=== PATIENT | female | born 1985 | race Caucasian/White ===

== ENCOUNTER 2023-01-01 05:35 | Emergency (ER) | payer MEDICAID, SELFPAY ==
[2023-01-01 05:38] VITALS: BP 137/44; PULSE 73; RESP 25; TEMP 37.1; O2SAT 100; BMI 24.5
--- NOTE | 2023-01-01 05:58 | CT_ITS ---
EXAM: CT HEAD WITHOUT INTRAVENOUS CONTRAST CLINICAL INDICATION: dizziness TECHNIQUE: Multiple axial images were obtained of the head without intravenous contrast. This CT exam was performed using one or more of the following dose reduction techniques: automated exposure control, adjustment of the mA and/or kV according to patient size, and/or use of iterative reconstruction technique. This report was created using [employer] report generation technology. COMPARISON: None. FINDINGS: BRAIN AND EXTRA-AXIAL SPACES: Normal. No intra- or extra-axial hemorrhage. No acute infarct. No intracranial mass or mass effect. There is preservation of the lake/white matter interface. Posterior fossa structures are unremarkable. Ventricles are appropriate for age. No hydrocephalus. Basal cisterns are patent. BONES/JOINTS: No suspicious lytic or blastic abnormality. SINUSES: No acute sinusitis. MASTOID AIR CELLS: Normal. Clear. ORBITS: Visualized globes, extraocular muscles, optic nerves and retrobulbar fat appear unremarkable. CT/Brain/Head without Contrast IMPRESSION: Normal CT brain without intravenous contrast. Electronically Signed: Kentrell Mcelroy MD at 7:33 EDT ,
--- NOTE | 2023-01-01 05:58 | EKG12_ITS ---
Test Reason : PALPS Blood Pressure : / mmHG Vent. Rate : 064 BPM Atrial Rate : 064 BPM P-R Int : 154 ms QRS Dur : 092 ms QT Int : 386 ms P-R-T Axes : 041 059 053 degrees QTc Int : 398 ms Normal sinus rhythm Normal ECG Confirmed by WALDEMAR MILLS, BYRON ([id number]), film or videotape editor KRISTI FLORES ([id number]) on 01/03/2023 9:12:15 AM Referred By: CISCO Confirmed By:BYRON MEDEIROS MD
[2023-01-01 06:03] VITALS: BP 117/66; BP 119/63; BP 129/86; PULSE 65; PULSE 68; PULSE 80
[2023-01-01] MEDS: diazePAM 5 MG Tablet 2.5 MG PO ×2 (06:07→07:34)
[2023-01-01 06:09] LABS: Absolute Lymphocyte Count 1.37 X10^3/uL (0.83-4.51); Absolute Neutrophil Count 3.6 X10^3/uL (2.0-7.7); Basophil# 0.04 X10^3/uL; Basophil% 0.7 % (0-1); Eosinophil# 0.16 X10^3/uL; Eosinophils% 2.9 % (0-5); Hematocrit 40.6 % (37-47); Hemoglobin 13.2 g/dL (12.0-15.0); Lymphocyte # 1.37 X10^3/ul (0.83-4.51); Mean Corp Hgb Conc 32.5 g/dL (32-36); Mean Corpuscular Hgb 30.7 pg (27.0-32.0); Mean Corpuscular Volume 94.4 fL (81-99); Mean Platelet Vol. 10.8 fl (6.2-12.0); Monocyte# 0.31 X10^3/uL; Monocyte% 5.6 % (0-10); NRBC Flagged by Analyzer 0 % (0-5); Neutrophil # 3.59 X10^3/uL (2.7-7.7); Neutrophil % 65.4 % (47-70); Platelet Count 240 K/mm3 (150-450); RBC Distribution Width SD 44.8 fl (35.1-43.9); White Blood Count 5.5 K/mm3 (4.4-11.0)
--- NOTE | 2023-01-01 06:30 | EX.ED.DYSGE1 ---
HPI History of Present Illness Chief Complaint: Palpitations Narrative Narrative: Patient is a 37-year-old female with past medical history of Verona's thyroiditis. She states she got up this morning to use the restroom and after standing up felt combination of both lightheadedness and dizziness. She states that if she sat down and lies still she had improvement of symptoms but as soon as she would change positions they would return. She reports feeling palpitations associated with this. She denies any history of cardiac dysrhythmia or family history of a abnormal heart rhythm. She states she also has developed ringing in her ears which is not normal for her. She states she has a recent diagnosis of Verona's thyroiditis but states she is not on any medication for it. She reports that as symptoms were not resolving spontaneously at home she was concerned this could be cardiac in nature and therefore comes in for evaluation [facility] Medical History Anemia Verona's thyroiditis Home Medications diazepam 5 mg tablet (Valium) 5 mg PO TID PRN dizziness or vertigo 5 days #15 tabs 01/01/23 [Rx Last Taken Unknown] Allergy/AdvReac Type Severity Reaction Status Date / Time Penicillins [PCN] AdvReac Rash Verified 01/01/23 05:37 Family History no significant family his Surgical History no surgical history Social History Smoking Status: Never smoker ROS ROS ED Constitutional Constitutional ED: Denies chills or fever(s) Eyes Eyes: Denies change in vision ENT ENT ED: Reports other Details: Positive tinnitus ; Denies sore throat Cardiovascular Cardiovascular: Reports palpitations; Denies chest pain Respiratory/Chest Respiratory/Chest: Denies cough or dyspnea Gastrointestinal Gastrointestinal: Reports nausea; Denies abdominal pain, diarrhea or vomiting Genitourinary Genitourinary ED: Denies dysuria Musculoskeletal Musculoskeletal: Denies myalgias Integumentary Denies rash Neurologic Neurologic: Reports headache(s); Denies paresthesias or weakness Hematologic/Lymphatic Hematologic/Lymphatic: Denies easy bleeding or easy bruising EXAM Physical Exam Const Vital Signs: 01/01/23 05:38 01/01/23 05:41 01/01/23 06:03 Temperature 98.7 F Temperature Source Temporal Pulse Rate 73 Pulse Rate [Lying] 65 Pulse Rate [Sitting (for 1 minute prior to obtaining)] 68 Pulse Rate [Standing (for 1 minute prior to obtaining)] 80 Respiratory Rate 25 H Respiratory Effort Normal Respiratory Pattern Normal Blood Pressure 137/44 H Blood Pressure [Lying] 117/66 Blood Pressure [Sitting (for 1 minute prior to obtaining)] 119/63 Blood Pressure [Standing (for 1 minute prior to obtaining)] 129/86 H Blood Pressure Mean 75 Blood Pressure Mean [Lying] 83 Blood Pressure Mean [Sitting (for 1 minute prior to obtaining)] 81 Blood Pressure Mean [Standing (for 1 minute prior to obtaining)] 100 Pulse Ox 100 Oxygen Delivery Method Room Air Positive well nourished and well developed General Appearance ED: well developed HEENT Reports TM's clear and moist mucous membranes Tympanic Membrane ED: Yes TM's clear Eyes PERRL and EOMs intact bilaterally Neck supple Neck Narrative: No nuchal rigidity or meningeal signs noted Resp normal respiratory effort and clear to auscultation bilaterally Cardio regular rate and regular rhythm Rate: other Other Details: Radial pulses are plus 2 out of 4 bilaterally are equal and symmetric GI normal to inspection, nondistended, normoactive bowel sounds, non-tender, non-distended and no masses GI Narrative: No voluntary guarding or rigidity no pulsatile mass Auscultation: normoactive bowel sounds Palpation: soft Extremity normal to inspection Extremity Narrative: No asymmetric edema no pitting edema negative Homans' sign bilaterally Neuro oriented x3, CN's II-XII intact bilaterally and no sensory deficits noted Neuro Narrative: Cranial nerves II through XII are grossly intact there are no focal neurologic deficit. No pronator drift no dysmetria no truncal ataxia. There is mild horizontal nystagmus noted Sensorium / Orientation: alert Psych mental status grossly normal Skin no rashes or lesions noted MDM MDM MDM Narrative Medical decision making narrative: Patient presented to the ER with stable vitals and appears to be in normal sinus rhythm upon evaluation. Along with the palpitations she reported an off balance/dizzy sensation. This seemed to be more consistent with peripheral vertigo as she did have horizontal nystagmus on exam. Orthostatic vital signs were obtained and were negative. Lab work reveals no clinically significant finding other than her elevated TSH which is consistent with a recent diagnosis of Verona's thyroiditis. She does not have any type of myxedema coma however. At this time she does not appear to have a cardiac dysrhythmia such as A-fib a flutter or SVT there is no acute neurologic event to suggest acute stroke as the cause of her symptoms as her NIH stroke scale score is 0 and there is no severe electrolyte derangement or signs of acute kidney injury and no signs of dehydration as her orthostatic vitals are negative. She was given 2.5 mg of oral Valium but despite this she still felt off balance and dizzy. Secondary to the persistent dizziness symptoms patient will undergo CTA of the head and neck to check for vertebrobasilar insufficiency. No results of CTA are still pending and therefore the case will be signed out to the daytime physician Dr. Aguero. Disposition will be based on patient's improvement with treatment as well as results of the CTA scan. I do feel that if CTA is normal and patient is able to ambulate then she should be safe for discharge History & Record Review Discussion w/independent historian: Patient and Significant other Lab Data Attestation: I reviewed the patient's lab results. Labs: Laboratory Results - last 24 hr 01/01/23 01/01/23 05:40 05:40 WBC 5.5 RBC 4.30 Hgb 13.2 Hct 40.6 MCV 94.4 MCH 30.7 MCHC 32.5 RDW Std Deviation 44.8 H RDW Coeff of Kimberly 13.0 Plt Count 240 MPV 10.8 Immature Gran % (Auto) 0.400 Neut % (Auto) 65.4 Lymph % (Auto) 25.0 [place] % (Auto) 5.6 Eos % (Auto) 2.9 Baso % (Auto) 0.7 Absolute Neuts (auto) 3.6 Absolute Lymphs (auto) 1.37 Nucleated RBC % 0 Sodium 136 Potassium 3.3 L Chloride 106 Carbon Dioxide 26.0 Anion Gap 4 L BUN 7 Creatinine 0.86 Estim Creat Clear Calc 79.03 Est GFR (MDRD) Af Amer 94 Est GFR (MDRD) Non-Af 78 BUN/Creatinine Ratio 8.1 L Glucose 139 H Calcium 8.9 Magnesium 2.2 TSH 9.15 H Discharge Plan Triage Chief Complaint: Palpitations ED Provider: Wili Martinez Dx/Rx/DC Orders Clinical Impression: Dizziness, Palpitations, Verona's thyroiditis Instructions: ED Dizziness, Uncertain Cause, ED Palpitations Prescriptions: New diazepam [Valium] 5 mg tablet 5 mg PO TID PRN (Reason: dizziness or vertigo) 5 Days Qty: 15 0RF Primary Care Provider: Nina Del Rosario Referrals: Nina Del Rosario DO [Primary Care Provider] - Activity Restrictions/Additional Instructions: Please take the prescribed medication as directed to help control any further symptoms and follow-up with your family doctor for repeat evaluation. If you have any further concerns please return to the emergency department for repeat evaluation
[2023-01-01 06:33] LABS: Anion Gap 4 (5-15); BUN 7 mg/dL (7-18); BUN/Creat Ratio 8.1 RATIO (10-20); Calcium,Total 8.9 mg/dL (8.5-10.1); Chloride 106 mmol/L (98-107); Creatinine, Serum 0.86 mg/dL (0.55-1.02); EST Glomerular Filtration Rate 78 mL/min (>60); Est Glom Filt Rate - Afr Amer 94 mL/min (>60); Estimated Creatinine Clearance 79.03 ml/min; Glucose 139 mg/dL (74-106); Magnesium 2.2 mg/dL (1.6-2.6); Potassium 3.3 mmol/L (3.5-5.1); Sodium Level 136 mmol/L (136-145); Thyroid Stim Hormone (TSH) 9.15 uIU/mL (0.358-3.74)
[2023-01-01] MEDS: 0.9% Normal Saline 1,000 ML 999 ML IV (06:51)
--- NOTE | 2023-01-01 07:16 | CT_ITS ---
INDICATION: Intractable dizziness EXAMINATION: CTA HEAD - CTA Head and Neck W/ Contrast Injection (and W/O Contrast Images if performed) TECHNIQUE: [place]/head CT angiogram protocol was performed following IV contrast. Routine carotid CT angiogram protocol was performed without and with IV contrast. NASCET criteria using the distal ICAs for comparison were used for evaluation of stenoses. 3D reconstructions were reviewed of the CT angiogram head and neck. A radiation dose optimization technique was used for this scan. IV Contrast dosage and agent: 100 cc [id number] COMPARISON: None. FINDINGS: --Anterior cerebral circulation: ACAs: No significant stenosis at the visualized segments. ACOM: Not present. MCAs: No significant stenosis at the visualized segments. --Posterior cerebral circulation: PCOMs: Right P-comm is present giving rise to the right posterior cerebral artery. sports umpire: No significant stenosis at the visualized segments. BASILAR ARTERY: No significant stenosis. --Carotid and vertebral circulation: AORTIC ARCH AND BRANCHES: Normal anatomy, patent. RIGHT CCA: No occlusion, significant stenosis or dissection. RIGHT ICA: No occlusion, significant stenosis or dissection. LEFT CCA: No occlusion, significant stenosis or dissection. LEFT ICA: No occlusion, significant stenosis or dissection. RIGHT VERTEBRAL ARTERY: No occlusion, significant stenosis or dissection. LEFT VERTEBRAL ARTERY: No occlusion, significant stenosis or dissection. NECK SOFT TISSUES: Unremarkable. LUNG APICES: Clear. BONES: Unremarkable. CT/CTA Head AND Neck W/ Contrast IMPRESSION: Normal CTA Head and CTA Neck Electronically Signed: Kentrell Mcelroy MD at 8:42 EDT ,
[2023-01-01 09:18] VITALS: BP 133/66; PULSE 65; RESP 14; O2SAT 100
== END 2023-01-01 09:20 | disposition home or self-care (01) ==
PROVIDERS: Emergency Provider Emergency Medicine; PCP Internal Medicine; Visit Provider Emergency Medicine
DX: R42 Dizziness and giddiness (principal); R00.2 Palpitations; E06.3 Autoimmune thyroiditis
CPT/HCPCS: 70450; 70496; 70498; 80048; 83735; 84443; 85025; 93005; 99285; J7030; Q9967; A4216

== ENCOUNTER 2023-04-11 05:08 | Emergency (ER) | payer MEDICAID, SELFPAY ==
[2023-04-11 05:09] VITALS: BP 133/80; PULSE 74; RESP 19; TEMP 36.6; O2SAT 100; BMI 23.9
--- NOTE | 2023-04-11 05:26 | EKG12_ITS ---
Test Reason : DYSRHYTHMIA Blood Pressure : / mmHG Vent. Rate : 059 BPM Atrial Rate : 059 BPM P-R Int : 170 ms QRS Dur : 090 ms QT Int : 400 ms P-R-T Axes : 048 076 057 degrees QTc Int : 396 ms Sinus bradycardia Otherwise normal ECG Confirmed by WALDEMAR MILLS, BYRON ([id number]), supervising editor news reel KRISTI FLORES ([id number]) on 04/12/2023 9:55:06 AM Referred By: KMEI Confirmed By:BYRON MEDEIROS MD
--- NOTE | 2023-04-11 05:26 | RAD_ITS ---
INDICATION: chest discomfort, dyspnea EXAMINATION/TECHNIQUE: X-RAY - XR Chest 2 Views COMPARISON: FINDINGS: LINES/DEVICES: None. LUNGS: No consolidation, edema or effusion. No pneumothorax. MEDIASTINUM AND CARDIOVASCULAR STRUCTURES: Cardiac silhouette not enlarged. Central airways and mediastinal contour are unremarkable. BONES AND SOFT TISSUES: Unremarkable. RAD/Chest PA and Lateral IMPRESSION: No radiographic evidence of acute cardiopulmonary disease. Electronically Signed: Philip Pearson MD at 6:10 EDT ,
--- NOTE | 2023-04-11 05:28 | EX.ED.DYSGE1 ---
HPI History of Present Illness Chief Complaint: General Illness Informant: patient Narrative Narrative: For the past 1-2 months, patient has been having frequent nausea throughout the day, feeling poorly in general, having a gurgling sensation in her throat/neck when she swallows liquids but more so saliva, and waking up in the middle of the night in a panic, with increased discomfort in her chest and making herself feel short of breath almost like PND. She denies feeling short of breath just simply by lying flat. She occasionally has some upper abdominal discomfort, but she is not been having a lot of abdominal pain. She recently was diagnosed with Verona thyroiditis and started on levothyroxine, and just saw endocrine. She does have a goiter. Endocrinology suggested she may have gluten intolerance and are running tests but nothing is back yet, and she has not been on a strict gluten-free diet yet. She definitely has noticed that the symptoms are worse with swallowing, and worse every night to the point where she wakes up and she is sleeping poorly. She has taken Prilosec but only started yesterday. Also in this period of time, she has been on 3 courses of antibiotics for urinary tract infections. The symptoms above started a little bit before the first urinary tract infection, the neck and chest symptoms have not been any better while on antibiotics but not necessarily worse. The antibiotics have made the urinary symptoms better transiently. 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 Home Medications Lacto no.51-B.animalis 30 billion cell-inulin 50 mg capsule,delay rel (Fortify Women Probiotic) cap PO 01/30/23 [History Last Taken Unknown] iron,carbonyl 65 mg-vitamin C 125 mg tablet,delayed release (Vitron-C) 1 tab PO DAILY 01/30/23 [History Last Taken Unknown] multivitamin 1 tab PO DAILY 01/30/23 [History Last Taken Unknown] levothyroxine 75 mcg tablet 75 mcg PO DAILY #90 tabs 04/09/23 [Rx Last Taken Unknown] sulfamethoxazole 400 mg-trimethoprim 80 mg tablet (Bactrim) 1 tab PO BID 04/09/23 [History Last Taken Unknown] ondansetron 4 mg disintegrating tablet 8 mg (2 x 4 mg) PO Q8H PRN PRN Nausea #20 tabs 04/11/23 [Rx Last Taken Unknown] pantoprazole 40 mg tablet,delayed release 40 mg PO DAILY #30 tabs 04/11/23 [Rx Last Taken Unknown] Allergy/AdvReac Type Severity Reaction Status Date / Time Penicillins [PCN] AdvReac Rash Verified 04/09/23 08:15 Family History Grandmother Anemia Diabetes Arthritis Mother Anxiety Asthma Cancer Father Asthma Autoimmune disorder COPD (chronic obstructive pulmonary disease) Brother Asthma Suicide attempt Mental disorder Grandfather Myocardial infarction Cancer Surgical History delivery delivered Social History Smoking Status: Never smoker alcohol intake: never substance use type: does not use what type of physical activity do you participate in: walking ROS ROS ED Constitutional Constitutional ED: Reports malaise; Denies chills or fever(s) Eyes Eyes: Denies change in vision or diplopia ENT ENT ED: Denies rhinorrhea or sore throat Cardiovascular Cardiovascular: Denies chest pain or palpitations Respiratory/Chest Respiratory/Chest: Denies cough or dyspnea Gastrointestinal Gastrointestinal: Reports nausea; Denies abdominal pain, diarrhea or vomiting Genitourinary Genitourinary ED: Denies dysuria or hematuria Musculoskeletal Musculoskeletal: Denies back pain or neck pain Integumentary Denies abscess or rash Neurologic Neurologic: Denies headache(s), paresthesias or weakness Psychiatric Psychiatric: Denies anxiety or suicidal thoughts EXAM Physical Exam Const Vital Signs: 04/11/23 05:09 Temperature 98 F Temperature Source Temporal Pulse Rate 74 Respiratory Rate 19 H Blood Pressure 133/80 H Blood Pressure Mean 97 Pulse Ox 100 Oxygen Delivery Method Room Air Positive well nourished and well developed; Negative for obese General Appearance ED: well developed and NAD Nutritional Appearance: Negative for obese HEENT Reports moist mucous membranes normocephalic and atraumatic Eyes PERRL and EOMs intact bilaterally Neck full ROM, no lymphadenopathy, supple and no JVD Resp normal respiratory effort and clear to auscultation bilaterally Cardio regular rate, regular rhythm and no murmurs Rate: Negative for tachycardic GI non-distended GI Narrative: Very mild subjective tenderness suprapubic only and no guarding or rebound, otherwise benign abdomen Auscultation: normoactive bowel sounds Palpation: soft Back/Spine no CVA tenderness General Back: other FROM Extremity normal to inspection General Extremety ED: Negative for edema, pulses abnormal or tenderness General Extremity: Negative for edema or pulses abnormal Neuro oriented x3, CN's II-XII intact bilaterally and no sensory deficits noted Sensorium / Orientation: awake and alert Motor Exam: strength 5/5 throughout Psych mental status grossly normal Skin no rashes or lesions noted and no wounds MDM MDM MDM Narrative Medical decision making narrative: Patient having PND in addition to occasional chest discomfort, shortness of breath, gurgling in her neck; I obtained a two-view chest x-ray to rule out pneumomediastinum and pleural effusions, pericardial effusion. On my interpretation, none of these are present. Radiology in agreement. The rest of her labs are normal including BNP and troponin, her EKG is normal. In the meantime she was given a GI cocktail, she states it resolved the gurgling for 5 or 10 minutes then she started feeling it again when she swallows. My suspicion is that she is having acid reflux. We also discussed the possibility of a functional GI disorder such as leaky gut syndrome or celiac disease which I am not able to rule in or out in the emergency department. I do think it is worth referring her to otolaryngology as an outpatient, and putting her on prescription PPI to take daily in the meantime. She is probably feeling poorly more related to her thyroid issues. It is possible that her goiter is exerting mechanical pressure on her esophagus and/or valleculae and causing pooling of secretions. I do not see a hiatal hernia on her chest x-ray, although this does not necessarily rule it out. I recommend sleeping in a recumbent position if she is able to decrease her chances for aspirating secretions, and to avoid eating right before bed. We will also give her referral to urogynecology given her frequent urinary tract infections here recently. Lab Data Attestation: I reviewed the patient's lab results. Labs: Laboratory Results - last 24 hr 04/11/23 05:35 WBC 2.7 L RBC 3.77 L Hgb 11.3 L Hct 34.9 L MCV 92.6 MCH 30.0 MCHC 32.4 RDW Std Deviation 43.7 RDW Coeff of Kimberly 12.9 Plt Count 198 MPV 10.5 Immature Gran % (Auto) 0.400 Neut % (Auto) 65.3 Lymph % (Auto) 21.8 [place] % (Auto) 10.3 H Eos % (Auto) 1.1 Baso % (Auto) 1.1 H Absolute Neuts (auto) 1.8 L Absolute Lymphs (auto) 0.59 L Nucleated RBC % 0 Sodium 138 Potassium 3.8 Chloride 108 H Carbon Dioxide 28.0 Anion Gap 2 L BUN 5 L Creatinine 0.89 Estim Creat Clear Calc 76.36 Est GFR (MDRD) Af Amer 90 Est GFR (MDRD) Non-Af 75 BUN/Creatinine Ratio 5.6 L Glucose 102 Calcium 8.7 Total Bilirubin 0.50 AST 15 ALT 15 Alkaline Phosphatase 42 L Troponin I High Sens 22 B-Natriuretic Peptide 14.7 Total Protein 6.6 Albumin 3.6 Globulin 3.0 Albumin/Globulin Ratio 1.2 Radiography Diagnostic Testing: Clinical Impression(s) from Imaging Studies Chest X-Ray 04/11/23 05:26 IMPRESSION: No radiographic evidence of acute cardiopulmonary disease. Electronically Signed: Philip Pearson MD at 6:10 EDT , Rhythm Strip Rhythm Strip: Sinus Rhythm Rate: 60 Ectopy: None EKG Initial EKG: Attestation: I personally reviewed and interpreted this EKG as follows: Interpretation: Sinus Rhythm and No Acute Injury Pattern Comments: Normal EKG Discharge Plan Triage Chief Complaint: General Illness ED Provider: Israel Black Dx/Rx/DC Orders Clinical Impression: Chest pain due to GERD, Frequent UTI, PND (paroxysmal nocturnal dyspnea) Instructions: ED GERD (Adult) Prescriptions: New pantoprazole 40 mg tablet,delayed release (DR/EC) 40 mg PO DAILY Qty: 30 1RF ondansetron [ondansetron] 4 mg tablet,disintegrating 8 mg PO Q8H PRN PRN (Reason: Nausea) Qty: 20 0RF No Action sulfamethoxazole-trimethoprim [Bactrim] 400-80 mg tablet 1 tab PO BID levothyroxine 75 mcg tablet 75 mcg PO DAILY Qty: 90 3RF Vitron-C 65 mg iron- 125 mg tablet,delayed release (DR/EC) 1 tab PO DAILY multivitamin Tablet 1 tab PO DAILY Fortify Women Probiotic 30 billion cell -50 mg capsule,delayed release(DR/EC) PO Primary Care Provider: Nina Del Rosario Referrals: Asha Blancas MD [Med Staff - Active Staff] - (call for appt) Davi Dee MD [Med Staff - Active Staff] - (call for appt) Nina Del Rosario DO [Primary Care Provider] - Disposition Disposition: Home, Self Care
[2023-04-11] MEDS: Ondansetron ODT 4 MG Tablet 8 MG PO (05:30)
[2023-04-11 05:48] LABS: Absolute Lymphocyte Count 0.59 X10^3/uL (0.83-4.51); Absolute Neutrophil Count 1.8 X10^3/uL (2.0-7.7); Basophil# 0.03 X10^3/uL; Basophil% 1.1 % (0-1); Eosinophil# 0.03 X10^3/uL; Eosinophils% 1.1 % (0-5); Hematocrit 34.9 % (37-47); Hemoglobin 11.3 g/dL (12.0-15.0); Lymphocyte # 0.59 X10^3/ul (0.83-4.51); Lymphocyte % 21.8 % (19-41); Mean Corp Hgb Conc 32.4 g/dL (32-36); Mean Corpuscular Volume 92.6 fL (81-99); Mean Platelet Vol. 10.5 fl (6.2-12.0); Monocyte# 0.28 X10^3/uL; Monocyte% 10.3 % (0-10); NRBC Flagged by Analyzer 0 % (0-5); Neutrophil # 1.77 X10^3/uL (2.7-7.7); Neutrophil % 65.3 % (47-70); POSITIVE DIFFERENTIAL YES; Platelet Count 198 K/mm3 (150-450); RBC Distribution Width CV 12.9 % (11.6-14.6); RBC Distribution Width SD 43.7 fl (35.1-43.9); Red Blood Count 3.77 M/mm3 (4.2-5.4); White Blood Count 2.7 K/mm3 (4.4-11.0)
[2023-04-11 05:52] LABS: Differential Indicated SCAN CRITERIA MET
[2023-04-11] MEDS: Mag Hydrox/Al Hydrox/Simeth 30 ML UDC PO (06:00)
[2023-04-11 06:09] LABS: BNP,B-Type NATRIURETIC PEPTIDE 14.7 pg/mL (0-100)
[2023-04-11 06:10] LABS: ALB/GLOB Ratio 1.2 RATIO (0.9-2.4); AST(SGOT) 15 U/L (15-37); Alanine Aminotransfer ALT/SGPT 15 U/L (13-56); Albumin, Serum 3.6 g/dL (3.2-5.0); Alkaline Phosphatase 42 U/L (45-117); Anion Gap 2 (5-15); BUN 5 mg/dL (7-18); BUN/Creat Ratio 5.6 RATIO (10-20); Calcium,Total 8.7 mg/dL (8.5-10.1); Chloride 108 mmol/L (98-107); Creatinine, Serum 0.89 mg/dL (0.55-1.02); EST Glomerular Filtration Rate 75 mL/min (>60); Est Glom Filt Rate - Afr Amer 90 mL/min (>60); Estimated Creatinine Clearance 76.36 ml/min; Glucose 102 mg/dL (74-106); Potassium 3.8 mmol/L (3.5-5.1); Protein, Total 6.6 g/dL (6.4-8.2); Sodium Level 138 mmol/L (136-145); Troponin-I HS 22 pg/mL (3.0-54.0)
[2023-04-11 06:40] LABS: Differential Comment SCANNED
[2023-04-11 07:14] VITALS: BP 116/80; PULSE 68; RESP 16; O2SAT 99
[2023-04-11 07:15] VITALS: BP 116/80; PULSE 68; RESP 16; O2SAT 99
[2023-04-12 10:01] LABS: Pathologist Review Reviewed
== END 2023-04-11 07:16 | disposition home or self-care (01) ==
LOC: ED 06:33
PROVIDERS: Emergency Provider Emergency Medicine; PCP Internal Medicine; Visit Provider Emergency Medicine
DX: K21.9 Gastro-esophageal reflux disease without esophagitis (principal); R06.09 Other forms of dyspnea; E06.3 Autoimmune thyroiditis; Z79.899 Other long term (current) drug therapy; Z87.440 Personal history of urinary (tract) infections
CPT/HCPCS: J2405; 71046; 80053; 83880; 84484; 85025; 93005; 99282; A4216

== ENCOUNTER 2023-05-14 12:55 | Outpatient (RCR) | payer MEDICAID, SELFPAY ==
--- NOTE | 2023-05-14 14:04 | HP.PTEVAL ---
Patient's Visit Information Visit Information Visit Information: SIMONE JOHNSON is a 37 year old F referred to Physical Therapy by Dr. Asha Mcdonough MD with a diagnosis of PELVIC FLOOR DYSFUNCTION AND STRESS INCONTINENCE. Date of Evaluation: 05/14/23 Physical Therapist: Kasey Cardoso PT, Cert MDT Visit Plan Frequency: 1x/Week Duration: 2-4 Months Plan: *CHECK AUTH* PF THERAPY FOR STRENGTHENING, LENGTHENING/RELAXATION AND ENDURANCE TRAINING. URINARY URGE AND FREQUENCY EDUCATION. HEALTHY BLADDER HABIT EDUCATION. TRAINING IN COORDINATION OF PELVIC FLOOR MUSCULATURE WITH HIP AND CORE (TRANSVERSE ABDOMINUS) MUSCULATURE. CORE STRENGTHENING. CLEVE LE ROM, STRETCHING AND STRENGTHENING. TRAINING IN ABDOMINAL CAVITY PRESSURE MGMT WITH EXERCISE AND ADL'S. Subjective Subjective: Work/Leisure: UNEMPLOYEED. 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 WALKING 2-3 MILES A DAY. Disability: NO Present symptoms: URGENCY. PAIN AND PRESSURE IN LOWER ABDOMEN AND GENITAL AREA WHEN PEEING. URINARY LEAKING SOMETIMES WITH SNEEZING. Present since: URGENCY AND PAIN STARTED APPROX JANUARY 2023. STRESS INCONTINENCE STARTED SOMETIME AFTER STARTED HAVING CHILDREN. Pain Scale: WORST 5/10, LEAST 0/10 Currently: 0/10 Is it getting better, worse or staying the same: MAYBE A LITTLE BIT BETTER Commenced as a result of: RECURRENT UTI'S THAT STARTED FOR NO APPARENT REASON. Symptoms at onset: BURNING WITH URINATION. Worse: URINATING, SNEEZING, SOMETIMES RUNNING, JUMPING. Better: DRINKING LESS SOMETIMES HELPS. Disturbed sleep: USUALLY NOT WAKING UP AT NIGHT TO URINATE. Previous history/Previous treatment: NO PRIOR H/O UTI'S. NO PRIOR TREATMENT FOR STRESS INCONTINENCE. Treatment this episode: ANTIBIOTICS, UROGESIC BLUE AND PROBIOTICS. NO LONGER ON ANTIBIOTICS BUT CURRENTLY ON UROGESIC BLUE AND PROBIOTICS. RECENT H/O UTI'S - STATES SHE HAS BEEN ON ANTIBIOTICS 4 TIMES SINCE JANUARY 2023 AND JUST ENDED ABOUT 2 WKS AGO. Gait: NORMAL How long can you delay the need to urinate: SOMETIMES 30 MIN AT MOST Prolapse (Falling out feeling): NO Frequency of Urination: ABOUT EVERY 2 HOURS Ability to stop urine flow: SOMETIMES Ability to initiate urine stream: YES Dyspareunia: SOMETIMES Bowel Incontinence: NO Accidents: NO Unexplained weight loss: NO Imaging: PELVIC X-RAY FEBRUARY 2023 - NORMAL PER PATIENT REPORT. VAGINAL US - NORAML PER PATIENT REPORT. RECENT CYSTOSCOPY BY DR. MCDONOUGH - NORMAL PER PATIENT REPORT. PMH/Recent major surgery: YOHANA'S THRODITIS, HYPOTHYROIDISM, ANEMIA, ANKLE FRACTURE, X 2. ACID REFLUX. Objective Objective: Sitting/Standing Posture: FAIR. MILD FH AND RSH'S. NO RELEVANT LUMBAR LATERAL SHIFT. Other Observations: INDEP GAIT AND TRANSFERS Sensory deficit: CLEVE LE LIGHT TOUCH SENSATION GROSSLY INTACT AND SYMMETRICAL ROM deficit: MILD CLEVE HS AND GASTROC SOLEUS COMPLEX TIGHTNESS. CLEVE HIP EXTERNAL ROTATOR AND HIP ADDUCTOR TIGHTNESS R > L. Motor deficit: CLEVE LE'S GROSSLY 5/5 WITH MMT'ING EXCEPT HIPS 4/5. PATIENT COMMUNICATES ABILITY TO CONTRACT PELVIC FLOOR X APPROX 5 SEC X 3 REPS. VISIBLE COMPENSATIONS SEEN WITH GLUTS AND ABS WHEN ATTEMPTING TO CONTRACT PELVIC FLOOR BUT IMPROVES WITH CUEING. Dural Signs: NEGATIVE CLEVE LE'S. Lumbar mvmt loss: flex - NIL ext - MIN R SG - NIL L SG - NIL PATIENT DENIES PAIN WITH LUMBAR ROM TESTING ALL PLANES. Core strength: FAIR FUNCTIONAL SCREEN: Incontinence Impact Questionnaire Score: 16 Urogenital Distress Inventory Score: 9 Goals Goal 1:: DECREASE URINARY LEAKAGE EPISODES WITH RUNNING, JUMPING AND SNEEZING. Goal Time Frame: 8-12 Weeks Goal 2:: PATIENT WILL SUCCESSFULLY DELAY VOIDING LONG NEEDED WHEN URGENCY OCCURS TO SUCCESSFULLY MAKE IT TO THE BATHROOM. Goal Time Frame: 2-4 Weeks Goal 3:: PATIENT WILL DEMONSTRATE/COMMUNICATE 10 CONSISTENT AND CONSECUTIVE 10 SECOND PELVIC FLOOR MUSCLE CONTRACTIONS TO DEMONSTRATE IMPROVED PELVIC FLOOR ENDURANCE. Goal Time Frame: 8-12 Weeks Goal 4:: DEVELOP HEALTHY FLUID INTAKE HABITS WITH FLUID INTAKE OF ? BODY WEIGHT IN OUNCES PER DAY AND 2/3 BEING WATER. Goal Time Frame: 2-4 Weeks Goal 5:: NORMALIZE VOIDING FREQUENCEY TO EVERY 3-4 HOURS. Goal Time Frame: 6-8 Weeks Goal 6:: PATIENT WILL BE INDEP WITH A HEP/HOME INSTRUCTIONS FOR CONTINUED IMPROVEMENT ONCE FORMAL PHYSICAL THERAPY CONCLUDES. Goal Time Frame: 8-12 Weeks Anticipated Interventions Patient/Client Instruction: Educate patient on: Condition, Plan of Care and Risk Factors For the Purpose of:: To improve self management Therapeutic Exercise to Include: Strength training, Endurance training, Flexibilty training and Neuromotor development For the Purpose of:: To improve muscle performance and motor function, To increase tolerance to activity/condition/position and To improve ability of physical actions for home/community/work/leisure Text: Thank you for the opportunity to evaluate your patient. For Medicare and Medicare HMO plans, please review the plan of care and approve it. It will need to be FAXED BACK to us at [phone] for Medicare purposes. For Medicare only, by signing this I certify the plan of care. Please let me know if there are questions or concerns regarding this plan of care. Physician Signature: Date:
--- NOTE | 2023-12-17 15:23 | HP.PT.NRP ---
Patient Information Patient Information: SIMONE JOHNSON was seen in my office for initial evaluation on 05/14/23. The following Plan of Care was established for this patient: POC Established Initial Frequency: 1x/Week Initial Duration: 2-4 Months Anticipated Interventions Patient/Client Instruction: Educate patient on: Condition, Plan of Care and Risk Factors For the Purpose of:: To improve self management Therapeutic Exercise to Include: Strength training, Endurance training, Flexibilty training and Neuromotor development For the Purpose of:: To improve muscle performance and motor function, To increase tolerance to activity/condition/position and To improve ability of physical actions for home/community/work/leisure Last Seen Last Seen: This patient was last seen in our office 05/14/23. Pertinent comments regarding their Physical therapy will appear below: This patient has not returned to Physical Therapy and is appropriate to return to MD for further follow-up as needed. At this point I will be discontinuing this patient from physical therapy. I would be happy to see this patient again in the future if found appropriate by the physician. Thank you! Kasey Cardoso, PT, Cert MDT
== END 2023-05-14 19:00 | disposition home or self-care (01) ==
LOC: PT 12:55
PROVIDERS: PCP Internal Medicine; Referring Provider Urology; Visit Provider Urology
DX: K59.02 Outlet dysfunction constipation (principal); N39.3 Stress incontinence (female) (male)
CPT/HCPCS: 97162

== ENCOUNTER → 2023-09-04 | Outpatient (CLI) | payer MEDICAID, SELFPAY ==
[2023-09-08 13:07] LABS: HPV APTIMA, High Risk Negative (Negative)
== END | disposition home or self-care (01) ==
LOC: LABSPEC 16:01
PROVIDERS: PCP Family Medicine; Referring Provider Registered Nurse; Visit Provider Registered Nurse
DX: Z12.4 Encounter for screening for malignant neoplasm of cervix (principal)
CPT/HCPCS: 87624; 88175; G0145

== ENCOUNTER → 2025-07-14 | Outpatient (CLI) | payer MEDICAID, SELFPAY ==
--- NOTE | 2025-07-14 09:19 | US_ITS ---
PROCEDURE: US/Breast Limited Unilateral
--- NOTE | 2025-07-14 09:19 | BI_ITS ---
EXAM: BI/DIAG MAMM W/CAD, BILAT
--- NOTE | 2025-07-14 09:19 | US_ITS ---
PROCEDURE: US/Breast Limited Unilateral
== END | disposition home or self-care (01) ==
LOC: OPBI 09:17
PROVIDERS: PCP Family Medicine; Referring Provider Nurse Practitioner Family; Visit Provider Nurse Practitioner Family
DX: N63.10 Unspecified lump in the right breast, unspecified quadrant (principal)
CPT/HCPCS: 77062; 76642; 77066; G0279

== ENCOUNTER → 2025-07-22 | Outpatient (CLI) | payer MEDICAID, SELFPAY ==
--- NOTE | 2025-07-22 08:35 | US_ITS ---
PROCEDURE: PELVIC W/ TRANSVAGINAL 07/22/2025 REASON FOR EXAM: AUB TECHNIQUE: Procedure Code: [id number] Modality: US Procedure: PELVIC W/ TRANSVAGINAL COMPARISON: None FINDINGS: Measurements: Uterus: 8.6 x 6.0 x 4.3 cm with a volume of 118 mL Endometrial Thickness: 5 mm Cervix: Nabothian cysts are seen. Right Ovary: 2.9 x 2.5 x 2.4 cm with a volume of 9.4 mL. Left Ovary: 3.3 x 2.0 x 1.8 cm with a volume of 6.2 mL. Uterus: The uterus is anteverted and anteflexed. The myometrium demonstrates heterogeneous echotexture. Endometrium: Trilaminar endometrial stripe is noted. Right ovary: Size, contour and echogenicity are within normal limits. There is blood flow to the ovary. There is no evidence of ovarian torsion. Left ovary: Size, contour and echogenicity are within normal limits. There is blood flow to the ovary. There is no evidence of ovarian torsion. Other: Urinary bladder measures 6.9 x 4.6 x 8.6 cm. Urinary bladder volume is 143 mL. Bladder wall is smooth. No filling defects are seen in the urinary bladder. There is no free fluid in the cul-de-sac. US/Pelvic w/ Transvaginal IMPRESSION: Uterus has heterogeneous echotexture however no uterine masses are seen. Small uterine fibroids could be obscured. Normal appearance to both ovaries. Reading Location: [id number]
== END | disposition home or self-care (01) ==
LOC: OPUS 08:34
PROVIDERS: PCP Family Medicine; Referring Provider Nurse Practitioner Family; Visit Provider Nurse Practitioner Family
DX: N93.9 Abnormal uterine and vaginal bleeding, unspecified (principal)
CPT/HCPCS: 76830; 76856